=== PATIENT | female | born 1955 | race Caucasian/White ===

== ENCOUNTER 2022-03-25 14:47 | Emergency (ER) | payer MEDICARE, OTHER ==
[~2022-03-25 14:47] MED LIST: ASPIRIN CHEWABL81 MG PO; CYMBALTA60 MG PO; FOLIC ACID 1 MG1 MG PO; IBUPROFEN800 MG PO; IMDUR ER TAB 3030 MG PO; IMDUR ER TAB 6060 MG PO; KLONOPIN TAB 00.5 MG PO; LIORESAL TAB 1010 MG PO; MOBIC15 MG PO; NEURONTIN 400400 MG PO; NITROSTAT 0.40.4 MG SL; PRAVASTATIN SOD20 MG PO; PRILOSEC OTC20 MG PO; TOPROL XL 25 MG25 MG PO; ZOVIRAX400 MG PO
[2022-03-25 18:52] LABS: HEMOGLOBIN 15.4 gm/dl (12.3-15.3); RED BLOOD COUNT 4.77 M/UL (4.00-5.10); WHITE BLOOD COUNT 19.6 K/UL (4.5-11.0)
[2022-03-25 19:35] LABS: BUN/CREATININE RATIO 14 (0-10)
[2022-03-25] MEDS ORDERED: PREDNISONE 20 M20 MG PO (22:08)
[2022-03-25] MEDS ORDERED: OMNICEF 300 MG300 MG PO (22:08)
== END 2022-03-25 22:39 | disposition home or self-care (01) ==
LOC: ER1 14:47
PROVIDERS: Student in an Organized Health Care Education/Training Program
DX: J44.0 Chronic obstructive pulmonary disease with (acute) lower respiratory infection (principal); J18.9 Pneumonia, unspecified organism; J44.1 Chronic obstructive pulmonary disease with (acute) exacerbation; I11.9 Hypertensive heart disease without heart failure; F17.210 Nicotine dependence, cigarettes, uncomplicated
CPT/HCPCS: 71046; 80053; 82550; 82553; 84484; 85025; 85379; 93005; 94664; 96374; 99285; J0696; J1100; Q9967

== ENCOUNTER → 2022-04-04 | Outpatient (CLI) | payer MEDICARE, OTHER ==
[~2022-04-04] MED LIST changes: +OMNICEF 300 MG300 MG PO; +PREDNISONE 20 M20 MG PO
== END ==
LOC: HEART CORB 13:00
DX: I73.9 Peripheral vascular disease, unspecified (principal)

== ENCOUNTER 2022-05-13 13:15 | Emergency (ER) | payer MEDICARE, OTHER ==
[2022-05-13 14:13] LABS: HEMOGLOBIN 16.1 gm/dl (12.3-15.3); RED BLOOD COUNT 4.99 M/UL (4.00-5.10); WHITE BLOOD COUNT 8.1 K/UL (4.5-11.0)
[2022-05-13 14:34] LABS: BUN/CREATININE RATIO 17 (0-10)
[2022-05-13] MEDS ORDERED: MELOXICAM15 MG PO (17:14)
[2022-05-13] MEDS ORDERED: ONDANSETRON ODT4 MG SL (17:14)
== END 2022-05-13 18:10 | disposition home or self-care (01) ==
LOC: ER1 13:15
DX: S20.211A Contusion of right front wall of thorax, initial encounter (principal); R10.11 Right upper quadrant pain; J44.9 Chronic obstructive pulmonary disease, unspecified; W19.XXXA Unspecified fall, initial encounter; Y92.009 Unspecified place in unspecified non-institutional (private) residence as the place of occurrence of the external cause
CPT/HCPCS: 71101; 80053; 81001; 83605; 83690; 85025; 87040; 96374; 99284; J2405; Q9967